=== PATIENT | male | born 1965 | race Caucasian/White ===

== ENCOUNTER 2016-08-02 08:22 | Emergency (ER) | payer MEDICAID ==
[~2016-08-02] VITALS: Ht 185.4 cm; Wt 90.7 kg
[2016-08-02 08:30] VITALS: BP 116/87
[2016-08-02] MEDS ORDERED: ONDANSETRON HCL 4 MG/2 ML VIAL IM ONE (08:45)
[2016-08-02] MEDS ORDERED: HYDROmorphone HCL 2 MG/ML VL IM ONE (08:45)
[2016-08-02] MEDS ORDERED: METHOCARBAMOL 500 MG TAB PO ONE (08:45)
== END 2016-08-02 10:57 | disposition home or self-care (01) ==
LOC: EDUNIT# 08:22 → ER 08:25
DX: M47.896 Other spondylosis, lumbar region (principal); M54.41 Lumbago with sciatica, right side
CPT/HCPCS: 72131; 96372; 99284; J1170; J2405

== ENCOUNTER 2018-12-19 19:32 | Inpatient (IN) | payer MEDICAID ==
[~2018-12-19] VITALS: Ht 188 cm; Wt 85.9 kg
[2018-12-19] MEDS ORDERED: SODIUM CHLORIDE 0.9% 1,000 ML IVB ONE (19:53)
[2018-12-19] MEDS ORDERED: CLINDAMYCIN 600MG IV 50 ML IV ONE (20:00)
[2018-12-19 20:33] LABS: Basophils # (auto) 0 uL; Basophils % (auto) 0.3 % (0.0-2.0); Eosinophils # (auto) 0 uL; Eosinophils % (auto) 0.1 % (0.0-7.0); Hematocrit 40.8 % (41.0-53.0); Hemoglobin 13.9 g/dL (13.5-17.5); Lymphocytes # (auto) 0.7 uL; Lymphocytes % (auto) 4.8 % (10.0-50.0); Mean Corpuscular Hemoglobin 30.6 pg (28.0-32.0); Mean Corpuscular Hgb Conc. 34.2 g/dL (32.0-36.0); Mean Corpuscular Volume 89.4 fL (80.0-100.0); Monocytes # (auto) 0.4 uL; Monocytes % (auto) 3.1 % (0.0-12.0); Neutrophils # (auto) 13.3 uL; Neutrophils % (auto) 91.7 % (37.0-80.0); Platelet Count (auto) 168 10^3/uL (140-450); Red Blood Cells 4.56 10^6/uL (4.5-5.90); Red Cell Distribution Width 13.2 % (11.8-14.3); White Blood Cell 14.5 10^3/uL (4.4-10.8)
[2018-12-19 20:55] LABS: Alanine Aminotransferase 19 U/L (16-61); Albumin 3.7 g/dL (3.4-5.0); Anion Gap 11 (5-15); Aspartate Aminotransferase 12 U/L (15-37); Blood Urea Nitrogen 13 mg/dL (7-18); Calcium 8.2 mg/dL (8.5-10.1); Carbon Dioxide 24 mmol/L (21-32); Chloride 103 mmol/L (98-107); GFR African American 83 mL/min; GFR Non-African American 69 mL/min; Glucose 143 mg/dL (74-106); Magnesium 2.1 mg/dL (1.6-2.6); Potassium 3.5 mmol/L (3.5-5.1); Sodium 138 mmol/L (136-145)
[2018-12-19 21:00] LABS: Alkaline Phosphatase 97 U/L (45-117); Bilirubin, Total 0.7 mg/dL (0.2-1.0); Total Protein 6.8 g/dL (6.4-8.2)
[2018-12-19] MEDS ORDERED: MECLIZINE HCL 25 MG TAB PO PRN (21:45)
[2018-12-19] MEDS ORDERED: ONDANSETRON HCL 4 MG/2 ML VIAL IV PRN (21:45)
[2018-12-19] MEDS ORDERED: TEMAZEPAM 15 MG CAP PO PRN (21:45)
[2018-12-19] MEDS ORDERED: ACETAMINOPHEN 325 MG TAB PO PRN (21:45)
[2018-12-19] MEDS ORDERED: SODIUM CHLORIDE 0.9% 500 ML IV ONE (21:45)
[2018-12-19] MEDS: CLINDAMYCIN 600MG IV 50 ML IV SCH (22:00)
--- NOTE | 2018-12-19 22:36 | NUR ---
MS admit from ER BLANCA JONES admitted to tele/MS after SBAR received. Patient oriented to Irene rizvi RN, unit, room, bed, and unit policies regarding patient care and visiting hours. Patient weighed by bed scale and encouraged to call if they need something. All questions and concerns addressed, patient verbalized understanding. Note: Came per gourney awake alert not in distress, placed in the bed comfortably, vital signs checked.
[2018-12-19 22:40] VITALS: BP 105/59
[2018-12-19] MEDS: FAMOTIDINE 20 MG TAB PO SCH (22:48)
[2018-12-20] MEDS ORDERED: OME20GT PO (00:21)
[2018-12-20] MEDS ORDERED: MECL1TAB42 PO (00:21)
[2018-12-20] MEDS: SODIUM CHLORIDE 0.9% 1,000 ML IV SCH ×4 (01:11→22:15)
[2018-12-20 05:00] VITALS: BP 100/66
[2018-12-20] MEDS: CLINDAMYCIN 600MG IV 50 ML IV SCH (05:34)
[2018-12-20 07:00] LABS: Basophils # (auto) 0 uL; Basophils % (auto) 0.3 % (0.0-2.0); Eosinophils # (auto) 0 uL; Eosinophils % (auto) 0.3 % (0.0-7.0); Hematocrit 37.4 % (41.0-53.0); Hemoglobin 12.5 g/dL (13.5-17.5); Lymphocytes # (auto) 1.1 uL; Mean Corpuscular Hemoglobin 30.2 pg (28.0-32.0); Mean Corpuscular Hgb Conc. 33.5 g/dL (32.0-36.0); Mean Corpuscular Volume 90.2 fL (80.0-100.0); Monocytes # (auto) 0.6 uL; Monocytes % (auto) 4.2 % (0.0-12.0); Neutrophils # (auto) 11.5 uL; Neutrophils % (auto) 87.2 % (37.0-80.0); Nucleated Red Blood Cells % 0.1 %; Platelet Count (auto) 144 10^3/uL (140-450); Red Blood Cells 4.15 10^6/uL (4.5-5.90); Red Cell Distribution Width 13.6 % (11.8-14.3); White Blood Cell 13.2 10^3/uL (4.4-10.8)
--- NOTE | 2018-12-20 07:09 | NUR ---
Report given to Judit Roach,patient is resting no distress. Addendum: 12/20/18 at 0719 by Irene Cheek RN Report given to Judit Clark, not Judit Shelton.
[2018-12-20 07:21] LABS: Anion Gap 10 (5-15); Blood Urea Nitrogen 11 mg/dL (7-18); Calcium 7.6 mg/dL (8.5-10.1); Carbon Dioxide 21 mmol/L (21-32); Chloride 111 mmol/L (98-107); Glucose 104 mg/dL (74-106); Potassium 3.7 mmol/L (3.5-5.1); Sodium 142 mmol/L (136-145)
[2018-12-20 07:23] LABS: BUN/Creatinine Ratio 13.4; GFR African American 127 mL/min; GFR Non-African American 105 mL/min
--- NOTE | 2018-12-20 07:30 | NUR ---
Opening Shift Note RECEIVED REPORT FROM NOC RN. Assumed care of patient, awake and alert. No S/S of distress/SOB or pain. BED IN LOWEST, LOCKED POSITION WITH SIDERAILS x2. Instructed on POC and to call for assist PRN, will continue to monitor for changes Q1hr and PRN.
[2018-12-20 08:00] VITALS: BP 97/60
[2018-12-20 08:15] VITALS: BP 97/60
[2018-12-20] MEDS ORDERED: cefTRIAXone 1GM/50ML D5W 50 ML IV SCH (09:00)
[2018-12-20 10:21] LABS: Urine Bacteria NONE SEEN /hpf (None Seen); Urine Blood Negative /uL (Negative); Urine Mucus FEW (None Seen); Urine Specific Gravity 1.016 (1.001-1.035); Urine WBC 2 /hpf (0 - 3)
[2018-12-20] MEDS: FAMOTIDINE 20 MG TAB PO SCH ×2 (10:25→21:01)
[2018-12-20 12:09] LABS: Alcohol, Urine < 3.0 mg/dL (0-5); Amphetamine Screen, Urine POSITIVE (NEGATIVE); Barbiturate Scree,Urine NEGATIVE (NEGATIVE); Benzodiazephine Screen, Urine NEGATIVE (NEGATIVE); Cannabinoid Screen, Urine POSITIVE (NEGATIVE); Cocaine Screen, Urine NEGATIVE (NEGATIVE); Opiate Scree,Urine NEGATIVE (NEGATIVE); Phencyclidine Screen, Urine NEGATIVE (NEGATIVE)
[2018-12-20] MEDS ORDERED: CLINDAMYCIN 600MG IV 50 ML IV SCH (13:30)
[2018-12-20 13:41] VITALS: BP 93/45
[2018-12-20 17:04] VITALS: BP 106/64
[2018-12-20] MEDS ORDERED: VANCOMYCIN PER PHARMACY 0 MG IV SCH (17:15)
[2018-12-20] MEDS ORDERED: PIPERACILLIN-TAZOB 3.375GM 100 ML IV SCH (18:00)
[2018-12-20] MEDS: VANCOMYCIN 1,500 MG in D5W 5% 250 ML IV SCH (18:08)
[2018-12-20] MEDS: PIPERACILLIN-TAZOB 3.375GM 100 ML IV SCH (21:04)
[2018-12-20 22:00] VITALS: BP 115/77
[2018-12-21] MEDS: PIPERACILLIN-TAZOB 3.375GM 100 ML IV SCH ×4 (02:52→21:45)
[2018-12-21 05:00] VITALS: BP 114/68
[2018-12-21 05:22] LABS: Basophils # (auto) 0 uL; Basophils % (auto) 0.5 % (0.0-2.0); Eosinophils # (auto) 0.1 uL; Eosinophils % (auto) 1.6 % (0.0-7.0); Hematocrit 37.1 % (41.0-53.0); Hemoglobin 12.7 g/dL (13.5-17.5); Lymphocytes # (auto) 1.4 uL; Lymphocytes % (auto) 15.6 % (10.0-50.0); Mean Corpuscular Hemoglobin 30.4 pg (28.0-32.0); Mean Corpuscular Hgb Conc. 34.1 g/dL (32.0-36.0); Mean Corpuscular Volume 89.1 fL (80.0-100.0); Monocytes # (auto) 0.5 uL; Monocytes % (auto) 6.2 % (0.0-12.0); Neutrophils # (auto) 6.6 uL; Neutrophils % (auto) 76.1 % (37.0-80.0); Platelet Count (auto) 142 10^3/uL (140-450); Red Blood Cells 4.16 10^6/uL (4.5-5.90); Red Cell Distribution Width 13.4 % (11.8-14.3); White Blood Cell 8.7 10^3/uL (4.4-10.8)
[2018-12-21] MEDS: VANCOMYCIN 1,500 MG in D5W 5% 250 ML IV SCH ×2 (05:34→19:01)
[2018-12-21 05:51] LABS: Chloride 111 mmol/L (98-107); Potassium 3.2 mmol/L (3.5-5.1); Sodium 143 mmol/L (136-145)
[2018-12-21 05:57] LABS: Anion Gap 11 (5-15); BUN/Creatinine Ratio 8.3; Blood Urea Nitrogen 7 mg/dL (7-18); Calcium 7.7 mg/dL (8.5-10.1); Carbon Dioxide 21 mmol/L (21-32); GFR African American 123 mL/min; GFR Non-African American 102 mL/min; Glucose 142 mg/dL (74-106)
[2018-12-21] MEDS: SODIUM CHLORIDE 0.9% 1,000 ML IV SCH (06:15)
--- NOTE | 2018-12-21 07:31 | NUR ---
Opening Shift Note Assumed care of patient, awake, alert and ambulatory. No S/S of distress, SOB. Pt denies any pain at this time. Bed in lowest and locked position with side rails up x2 and call light within reach. Instructed on POC and to call for assist PRN, will continue to monitor for changes Q1hr and PRN.
[2018-12-21 08:38] VITALS: BP 118/75
[2018-12-21] MEDS ORDERED: LEVOFLOXACIN 750MG 150 ML IV SCH (10:00)
--- NOTE | 2018-12-21 11:00 | NUR ---
IV insertion IV access obtained, via clean sterile technique by inserting 20 gauge catheter at RIGHT UPPER ARM after 2 attempt(s). IV secured properly. No trauma to site. Patient tolerated well.
--- NOTE | 2018-12-21 11:05 | NUR ---
IV removal IV IN THE RIGHT AC DC'd with clean sterile technique, catheter fully intact. Pressure dressing applied to site. Patient tolerated well.
[2018-12-21] MEDS: FAMOTIDINE 20 MG TAB PO SCH ×2 (11:22→21:45)
[2018-12-21] MEDS: POTASSIUM CHL 20 Meq TABLET PO SCH (11:22)
[2018-12-21 12:34] VITALS: BP 115/71
--- NOTE | 2018-12-21 16:05 | NUR ---
PT WENT DOWN TO SMOKE. PT SIGNED AMA SMOKING DOCUMENT. EDUCATED THE PT ON THE RISKS OF SMOKING AND THE BENEFITS OF SMOKING CESSATION. PT VERBALIZED UNDERSTANDING AND CONTINUED TO WALK OUT SIDE TO SMOKE.
[2018-12-21 17:00] VITALS: BP 131/87
[2018-12-21 21:27] VITALS: BP 13/62
[2018-12-22] MEDS: PIPERACILLIN-TAZOB 3.375GM 100 ML IV SCH ×2 (03:43→08:25)
[2018-12-22 05:00] VITALS: BP 98/55
[2018-12-22] MEDS: VANCOMYCIN 1,500 MG in D5W 5% 250 ML IV SCH (06:17)
[2018-12-22 06:32] LABS: Anion Gap 9 (5-15); BUN/Creatinine Ratio 9.3; Blood Urea Nitrogen 8 mg/dL (7-18); Calcium 8.1 mg/dL (8.5-10.1); Carbon Dioxide 23 mmol/L (21-32); Chloride 113 mmol/L (98-107); GFR African American 120 mL/min; GFR Non-African American 99 mL/min; Glucose 104 mg/dL (74-106); Potassium 3.8 mmol/L (3.5-5.1); Sodium 145 mmol/L (136-145)
--- NOTE | 2018-12-22 07:15 | NUR ---
OPENING SHIFT NOTE ASSUMED CARE OF PATIENT. PATIENT IS A&OX4 WITH NO C/O PAIN OR DISTRESS AT THIS TIME. BED IS IN LOW POSITION, LOCKED WITH CALL LIGHT IN REACH. 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 CONTINUING TO MONITOR PATIENT Q1 HR
--- NOTE | 2018-12-22 07:15 | NUR ---
OPENING SHIFT NOTE ASSUMED CARE OF PATIENT. PATIENT IS A&OX4 WITH NO C/O PAIN OR DISTRESS AT THIS TIME. BED IS IN LOW POSITION, LOCKED WITH CALL LIGHT IN REACH. 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 CONTINUING TO MONITOR PATIENT Q1 HR
[2018-12-22] MEDS: POTASSIUM CHL 20 Meq TABLET PO SCH (08:26)
[2018-12-22] MEDS: FAMOTIDINE 20 MG TAB PO SCH (08:26)
[2018-12-22 08:36] VITALS: BP 124/72
--- NOTE | 2018-12-22 08:45 | NUR ---
OUT SO SMOKE
--- NOTE | 2018-12-22 08:55 | NUR ---
RETURNED FROM SMOKING
[2018-12-22] MEDS ORDERED: CLIN150C PO (10:20)
[2018-12-22] MEDS ORDERED: LEVO750T64 PO (10:20)
--- NOTE | 2018-12-22 12:15 | NUR ---
IV removal IV DC'd with clean sterile technique, catheter fully intact. Pressure dressing applied to site. Patient tolerated well.
--- NOTE | 2018-12-22 12:30 | NUR ---
PATIENT DC PATIENT DISCHARGED. EDUCATED ON DISEASE AND DISEASE MANAGEMENT, PATIENT VERBALIZED UNDERSTANDING. PATIENT AMBULATED OUT OF HOSPITAL WITH SPOUSE. PATIENT DENIES ANY PAIN OR DISTRESS AT THIS TIME, HAS ALL PERSONAL BELONGINGS AND EDUCATION
[2018-12-22] MEDS ORDERED: VANCOMYCIN 1,250 MG in D5W 5% 250 ML IV SCH (18:00)
== END 2018-12-22 12:30 | disposition home or self-care (01) | DRG 383 ==
LOC: ER 19:34 → OVERFLOW 19:35 → WEST WING 22:36
PROVIDERS: ADMIT Nurse Practitioner; ATTEND Internal Medicine
DX: L03.114 Cellulitis of left upper limb (principal); R65.10 Systemic inflammatory response syndrome (SIRS) of non-infectious origin without acute organ dysfunction; E87.6 Hypokalemia; M72.9 Fibroblastic disorder, unspecified; Z82.3 Family history of stroke; F17.210 Nicotine dependence, cigarettes, uncomplicated; F15.10 Other stimulant abuse, uncomplicated; R55 Syncope and collapse; Z83.49 Family history of other endocrine, nutritional and metabolic diseases
CPT/HCPCS: 36415; 70450; 71045; 73200; 80048; 80053; 80202; 80307; 80320; 81001; 83605; 83735; 84484; 85025; 87040; 93005; 93930; 94761; 96365; 96366; G0378; J0696; J2543; J3490; J7060